=== PATIENT | female | born 2000 | race Two or more races ===

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

== ENCOUNTER 2023-11-25 09:11 | Emergency (ER) | payer OTHER ==
[~2023-11-25] VITALS: Ht 162.6 cm; Wt 45.4 kg
[2023-11-25] MEDS ORDERED: LDN PO (09:28)
[2023-11-25] MEDS ORDERED: PROBIOTIC1 EAC4 (09:29)
[2023-11-25] MEDS ORDERED: FAMOtidine 10 MG/ML (4ML VIAL) IV STA (10:07)
[2023-11-25] MEDS ORDERED: FAMOTIDINE/PF 20 MG/2 ML VIAL ONE (10:10)
[2023-11-25 10:16] LABS: HEMATOCRIT 35.7 % (36.0-45.00); HEMOGLOBIN 11.7 g/dL (12.0-15.00); MEAN CELL VOLUME 77.7 fL (80.00-100.00); MEAN CORPUSCULAR HEMOGLOBIN 25.5 pg (27.00-32.0); MEAN CORPUSCULAR HGB CONC 32.8 g/dl (32.0-36.0); PLATELET COUNT 193 K/uL (150-450); RED CELL DISTRIBUTION WIDTH 15.8 % (11.5-14.5)
[2023-11-25 10:34] LABS: ERYTHROCYTE SEDIMENTATION RATE 47 mm/hr
[2023-11-25 10:36] LABS: CALCIUM 8.9 mg/dL (8.5-10.1); CREATININE SERUM 0.68 mg/dL (0.55-1.02); GFR 107.22; POTASSIUM 4.18 mEq/L (3.5-5.1)
[2023-11-25 11:05] LABS: URINE APPEARANCE Cloudy; URINE BILIRRUBIN Negative (NEGATIVE); URINE BLOOD Negative; URINE COLOR Dark Yellow; URINE GLUCOSE Negative (NEGATIVE); URINE KETONE Trace (NEGATIVE); URINE LEUKOCYTE Trace; URINE NITRATE Negative; URINE PROTEIN Negative (NEGATIVE); URINE UROBILINOGEN 0.2 E.U./dl
[2023-11-25 11:07] LABS: URINE EPITHELIAL CELLS 77.3 uL (0.0-38.8); URINE RBC 14.2 uL (0.0-20.8); URINE WBC 43.4 uL (0.0-23.2)
[2023-11-25 12:17] LABS: URINE BACTERIA > 9821.5 uL (0.0-1933); URINE CAST 0.15 uL (0.0-1.40)
== END 2023-11-25 12:56 | disposition home or self-care (01) ==
LOC: ER 09:12
PROVIDERS: General Practice
DX: N20.0 Calculus of kidney (principal); R10.12 Left upper quadrant pain; M19.90 Unspecified osteoarthritis, unspecified site; M32.8 Other forms of systemic lupus erythematosus